=== PATIENT | male | born 1985 | race Caucasian/White ===

== ENCOUNTER 2018-07-23 02:21 | Inpatient (IN) ==
[2018-07-23] MEDS ORDERED: VANCOMYCIN 1 GM/NS 1 GM/250 ML IVPB IV ONE (04:13)
[2018-07-23] MEDS ORDERED: MORPHINE IV ONE (04:13)
--- NOTE | 2018-07-23 04:14 | PROVIDER DOCUMENTATION ---
HPI-General Adult - General Chief Complaint: Insect Bite/Sting Stated Complaint: FINGER INJURY Time Seen by Provider: 07/23/18 04:02 Source: patient Allergies/Adverse Reactions: Patient Allergies Allergy/AdvReac Type Severity Reaction Status Date / Time Penicillins Allergy Severe ANAPHYLAXIS Verified 01/04/18 09:30 sulfamethoxazole Allergy HIVES Verified 01/04/18 09:30 [From Bactrim] trimethoprim [From Bactrim] Allergy HIVES Verified 01/04/18 09:30 Home Medications: Home Medication List Medication Instructions Recorded Confirmed Last Taken Type No Home Medications 01/01/16 01/04/18 Unknown History - History of Present Illness -Gen Adult Nature of Presenting Problems: 33 y/o M presents to the ED complaining of redness and swelling of his left thumb and hand. States this began 2-3 days ago as a white bump on his medial left thumb and states this white area has increased in size and states over the past 24-36 hours his thumb and hand have become markedly swollen and red. No fever. no injury to thumb, did sustain a burn to his left lateral hand about 1 week ago but states this had fully healed. last tetanus > 5 years ago. Review of Systems - Adult - REVIEW OF SYSTEMS - ADULT Constitutional: reports: no symptoms reported Eyes: reports: no symptoms reported Ears, Nose, Mouth & Throat: reports: no symptoms reported Cardiovascular: reports: no symptoms reported Respiratory: reports: no symptoms reported Gastrointestinal: reports: no symptoms reported Genitourinary: reports: no symptoms reported Musculoskeletal: reports: no symptoms reported Integumentary: reports: other (wound, redness, swelling) Neurological: reports: no symptoms reported Psychiatric: reports: no symptoms reported Endocrine: reports: no symptoms reported Hematologic/Lymphatic: reports: no symptoms reported Allergic/Immunologic: reports: no symptoms reported All Other Systems: Reviewed and Negative Past History - Adult - PAST MEDICAL HISTORY-ADULT Review of Records: reports: Old Records Reviewed, Nursing Assessment Review, Medications Reviewed, Social history reviewed & non-contributory. Major Childhood Illnesses: reports: denies history Cardiovascular: reports: HTN Respiratory: reports: denies history Gastrointestinal: reports: denies history Obstetrical/Gynecological: reports: denies history Genitourinary: reports: denies history Musculoskeletal: reports: other Neurological: reports: denies history Psychiatric: reports: anxiety Endocrine/Immune: reports: denies history Other Conditions: reports: denies history - PRIOR SURGERIES/PROCEDURES Surgical/Procedure History: reports: tonsillectomy, orthopedic (extremity) (right wrist) - IMMUNIZATION STATUS Childhood Immunizations: UTD - FAMILY HISTORY Family History: reviewed, not pertinent Physical Exam-General - PHYSICAL EXAM-ADULT Initial Vital Signs Reviewed: Yes - CONSTITUTIONAL General Appearance: appears well, alert, no apparent distress - EYES Eyes: PERRL/EOMI - HEAD, EARS, NOSE, MOUTH & THROAT HENMT: normocephalic/atraumatic, moist mucous membranes, normal ENT inspection - NECK Neck: non-tender, full range of motion, supple - MUSCULOSKELETAL Back Exam: normal inspection Extremity: normal range of motion, non-tender - SKIN Integumentary: normal color, normal turgor, warm/dry, other (white discoloration along medial left thumb with slight pururlent drainge and marked surrouding edema and erthrema of thumb and proximal lateral hand. some tenderness along flexor compartment. 2+ pulses, CR < 2 sec, neurovascularly intact) - NEUROLOGIC Neurologic: grossly normal, no motor/sensory deficits - PSYCHIATRIC Psych/Mental Status: normal mood/affect, normal thought content, normal thought process, oriented x 3 Progress - PLAN OF CARE/RESULTS Progress/Plan/Lab Results: Orders Category Date Time Status IV Insertion ORDERED Care 07/23/18 04:[address] EXT UPPER LEFT W/CON [CT] Stat Exams 07/23/18 04:13 Ordered BASIC METABOLIC PANEL [CHEM] Stat Lab 07/23/18 04:13 Uncollected CBC WITH DIFF [HEME] Stat Lab 07/23/18 04:13 Uncollected WOUND CULTURE INC GRAM STAIN [RM] Stat Lab 07/23/18 04:13 Uncollected Morphine Med 07/23/18 04:13 Once 4 mg IV NOW ONE Vancomycin 1 gm IV Now Med 07/23/18 04:13 Ordered Vancomycin 1 gm/Ns 1 gm in 250 ml IV NOW thumb and hand infection concerning for tenosynovitis vs abscess. Will empirically treat with vanco and will update tetanus and will further evaluate for degree of infection. Assumed care from NT with plan for ortho consult pending CT. Result Diagrams: 07/23/18 04:41 07/23/18 04:41 - REASSESSMENT Reassessment #1 Status: unchanged (signed out to AM physician Dr. Angelo at [address] results and final disposition) - CT/MRI 1 CT Study: Upper Ext Impression: See EMR Report - CONSULTS/PCP/HOSPITALIST Notification #1 *Consult/PCP/Hospitalist*: PA for Dr. Croft Time Discussed: 08:40 Consult Disposition: Will see in ED #2 Consult: Hospitalist Time Discussed: :31 Consult Disposition: Admit Departure - Departure Date of Disposition Decision: 07/23/18 Time of Disposition Decision: : DIAGNOSIS: Cellulitis and abscess of hand Disposition: ADMITTED INPATIENT 09 Certified Medical Emergency: Emergent Condition: Serious Referrals and Follow-Ups: None,PCP [Primary Care Provider] - - Critical Care Note This patient required my direct & personal management of CC.: No Attestation - Physician/ CARLOS Attestation Patient care was provided by Advanced Practice Provider:: No The physician spent face to face time with patient:: Yes Advanced Practice Provider documentation review:: Supervising physician onsite and consulted in the evaluation and care of this patient. The physician did have a face to face encounter with the patient.
[2018-07-23] MEDS ORDERED: BOOSTRIX VACCINE IM ONE (05:14)
[2018-07-23 05:33] LABS: BASO# 0.04 X1000 (0.0-0.2); BASO% 0.3 % (0.0-0.8); EOS# 0.26 X1000 (0.0-0.7); EOS% 1.6 % (0.0-10.0); HEMATOCRIT 41.2 % (42.0-52.0); HEMOGLOBIN 14.1 g/dL (14.0-18.0); IMM GRAN# 0.04 X1000 (0.0-0.04); IMM GRAN% 0.3 % (0.0-0.5); LYMPH# 2.28 X1000 (1.2-3.4); LYMPH% 14.5 % (20.5-51.1); MCHC 34.2 g/dL (33-37); MCV 84.6 FL (81-99); MONO# 1.82 X1000 (0.11-0.59); MONO% 11.5 % (1.7-9.3); MPV 11.1 FL (7.4-10.4); NEUT# 11.32 X1000 (1.4-6.5); NEUT% 71.8 % (42.2-75.2); PLT 220 X1000 (130-400); RBC 4.87 XMIL (4.7-6.1); RDW 13.9 % (11.5-14.5); WBC 15.76 X1000 (4.8-10.8)
[2018-07-23 06:13] LABS: AGAP 13; BUN 15 mg/dL (8-22); CALCIUM 8.7 mg/dL (8.8-10.2); CHLORIDE 103 mmol/L (98-107); COSMO 278; CREATININE 0.8 mg/dL (0.7-1.2); ESTIMATED GFR > 60; GLUCOSE 83 mg/dL (70-104); POTASSIUM 3.8 mmol/L (3.5-5.1); SODIUM 139 mmol/L (136-145); TCO2 23 mmol/L (25-35)
[2018-07-23] MEDS ORDERED: DILAUDID IM ONE (06:15)
[2018-07-23] MEDS ORDERED: DILAUDID IV ONE (07:13)
--- NOTE | 2018-07-23 08:07 | Diag Imaging Result Doc PS360 ---
CT EXT UPPER LEFT W/CON - 07/23/2018 INDICATION: infection r/o abscess/tenosynovitis TECHNIQUE: CT of the entire left hand, arm and shoulder with intravenous contrast COMPARISON: None FINDINGS: Bones are intact and normally mineralized. The soft tissues are clear. No mass or fluid collection. There are some normal size, reactive axillary lymph nodes. The major arteries and veins of the shoulder and arm are all patent. No soft tissue gas. IMPRESSION: Negative exam. This exam was performed using automated exposure control, adjustment of mA or kV according to patient size, and/or use of iterative reconstruction technique Electronically signed by Isai Ziegler 07/23/2018 8:04 AM
[2018-07-23] MEDS ORDERED: TYLENOL PO ONE (08:22)
[2018-07-23] MEDS ORDERED: VANCOMYCIN IV PER PHARMACY MISC SCH (10:15)
[2018-07-23] MEDS ORDERED: NS 1,000 ML IV ONE (10:55)
[2018-07-23] MEDS ORDERED: NORCO-7.5 PO PRN (10:55)
[2018-07-23 11:04] LABS: URINE SOURCE CLEAN CATCH
[2018-07-23 11:11] LABS: BILIRUBIN URINE NEGATIVE (NEGATIVE); BLOOD URINE NEGATIVE (NEGATIVE); COLOR YELLOW; GLUCOSE URINE NEGATIVE (NEGATIVE); KETONE URINE NEGATIVE (NEGATIVE); LEUKOCYTES URINE NEGATIVE (NEGATIVE); NITRITE URINE NEGATIVE (NEGATIVE); PROTEIN URINE TRACE mg/dL (NEGATIVE); TURBIDITY URINE CLEAR (CLEAR); UROBILINOGEN URINE NORMAL (NORMAL)
[2018-07-23 11:14] LABS: UR EPITHELIAL CELLS <10 /HPF (<10); URINE BACTERIA NEGATIVE /HPF; URINE RBC <10 /HPF (<10); URINE WBC <10 /HPF (<10)
[2018-07-23 11:25] LABS: UR AMPHETAMINES QUAL NONE DETECTED (NONE DETECT); UR BARBITUATES QUAL NONE DETECTED (NONE DETECT); UR BENZODIAZEPIN QUAL NONE DETECTED (NONE DETECT); UR CANNABINOIDS QUAL NONE DETECTED (NONE DETECT); UR COCAINE QUAL NONE DETECTED (NONE DETECT); UR METHADONE QUAL NONE DETECTED (NONE DETECT); UR OPIATES QUAL PRESUMPTIVE POSITIVE (NONE DETECT); UR OXYCODONE QUAL NONE DETECTED (NONE DETECT); UR PCP QUAL NONE DETECTED (NONE DETECT)
--- NOTE | 2018-07-23 12:35 | HISTORY AND PHYSICAL ---
PRIMARY CARE PHYSICIAN: None. CHIEF COMPLAINT: Right thumb and hand pain and swelling. HISTORY OF PRESENT ILLNESS: Mr. Coleman is a 33-year-old male with no medical problems, who presents to the ER with pain to the right thumb and hand after presumably being bitten by a spider. He was working in his shed on his garage 3 days ago. He felt a sharp sting to the right thumb but did not think much of it. Later on that night, the thumb began to swell, and over the next 48 hours, the swelling increased, and while he was at work last night, he started feeling a little bit dizzy and came to the ER for evaluation. In the ER, he had labs done. He was noted to have a white count of 15,000, and he does have a fever of 100.3. A CT of the upper extremity was done which was negative for any abnormalities. No soft tissue gas was noted. He is hemodynamically stable at this time. We will admit him for IV antibiotics. PAST MEDICAL HISTORY: Nicotine dependence. PAST SURGICAL HISTORY: He has had right wrist surgery secondary to trauma. SOCIAL HISTORY: He chews tobacco daily. Denies alcohol or drug use. He is . He works at a local [employer] on third shift. FAMILY HISTORY: Noncontributory. REVIEW OF SYSTEMS: A 14-point review of systems was obtained and found to be negative with the exception of the HPI. ALLERGIES: Penicillin and Bactrim. HOME MEDICATIONS: None. PHYSICAL EXAMINATION: VITAL SIGNS: Blood pressure is 128/62, heart rate 89, respiratory rate 18, O2 saturation 98% on room air, temperature is 100.3. GENERAL: A well-developed, well-nourished male lying in hospital bed, in no acute distress. NEUROLOGICAL: Awake, alert and oriented. Follows commands without focal deficits. HEENT: Head is atraumatic and normocephalic. Pupils are equal, round and reactive to light. Oral mucosa is moist. NECK: Trachea is midline. No JVD. CHEST: Clear to auscultation. CARDIOVASCULAR: Regular rate and rhythm. S1 and S2 noted. No murmurs, gallops, clicks or rubs. GASTROINTESTINAL: Soft, nondistended and nontender. Bowel sounds positive. EXTREMITIES: Lower extremities without cyanosis, clubbing or edema. Pulses 2+ bilaterally. Left thumb has focal point of induration with serosanguineous fluid drainage, and the thumb down to the thenar muscles is edematous and erythematous. Range of motion is limited, but sensation and neurovascular are intact. There is no purulent drainage noted. DIAGNOSTIC DATA: WBC is 15.76, hemoglobin 14.1, hematocrit 41.2, platelet count 220. Sodium 139, potassium 3.8, chloride 103, CO2 is 23, anion gap 13, BUN is 15, creatinine 0.8, glucose 83, calcium 8.7. CT of the left hand is negative. ASSESSMENT AND PLAN: 1. Left hand/thumb cellulitis. Blood cultures have been ordered. We will continue vancomycin which was started in the ER. CT does not show anything acute. We will go ahead and have Orthopedics following, as it is over the thumb joint. 2. Early sepsis. The patient has a white count of 15.76, low grade fever. He is very minimally acidotic. We do not have vital signs for when he initially got to the ER. Blood cultures and lactic acid have been ordered. Continue vancomycin. He is hemodynamically stable. 3. Nicotine dependence. We will write a nicotine patch as needed for nicotine withdrawal and continue cessation education. 4. DVT prophylaxis. The patient is ambulatory. Further recommendations to follow. Patient seen and examined by me face to face, all the laboratory, images and vitals signs were reviewed, Patient presented with left hand cellulitis, specially his thumb with an small lesion at his thumb that is draining clear fluid, apparently he felt that was probably bitten by a spider while he was working on his garage, he has swelling, redness and severe pain in that area, he will be admitted with antibiotics, ain medication, orthopedic surgery will be consulted, I agree with the rest of the SENIOR BI ARCHITECT's assessment and plan, Dariusz Willingham MD. Dictated by ANDRÉS Stroud for Dariuzs Boo MD cc: ANDRÉS Stroud MD MTDD
--- NOTE | 2018-07-23 13:24 | ORTHOPAEDICS CONSULTATION ---
DATE: 07/23/2018 CHIEF COMPLAINT: Left hand pain and swelling. HISTORY OF PRESENT ILLNESS: Mr. Coleman is a 33-year-old male who is complaining of left hand pain and swelling for the past 2 days. He denies any injury. He states 2 days prior, his thumb and thenar eminence started to become painful and swollen. He states that he has had light drainage from a wound at the thumb and feels that it is an insect bite. His pain worsened, and he presented to the emergency department where we were consulted for further evaluation and treatment. For past medical history, past surgical history, allergies and medications, see the emergency department documentation. REVIEW OF SYSTEMS: Positive for left hand pain and swelling, all others negative. PHYSICAL EXAMINATION: General: This is a well-developed, well-nourished male. He is alert, oriented and cooperative with the examination. He is in no acute distress. Vital signs: He is afebrile. HEENT: Head is atraumatic and normocephalic. Neck is supple. Respiratory: His breathing is nonlabored. Abdomen is nondistended. Cardiovascular: He has good capillary refill of his left thumb. Musculoskeletal: He has loss of full active and passive flexion of his left thumb, but he is able to perform range of motion with some pain. He has full range of motion in extension of his left thumb without pain. He has mild tenderness over his left thumb flexor tendon. There is erythema and edema throughout the left thenar eminence and left thumb. There is a small wound at the lovett thumb with no active drainage. There is also ecchymosis surrounding his wound. There is also a wound on his dorsal radial hand that appears to be healing. The patient states it has been there for 2 months. DIAGNOSTIC DATA: His white blood cell count is 15.72. IMAGING: A CT of his hand revealed no abnormality. ASSESSMENT: Left thenar eminence and thumb cellulitis. PLAN: We do not feel that it is flexor tenosynovitis at this time. We recommend that he be admitted for IV antibiotics and will continue to monitor him. If he does not improve with IV antibiotics, we may consider taking to the operating room for irrigation and debridement. We will monitor him for now. Dictated by MELI Iniguez for Osvaldo Croft MD cc: MELI Iniguez MD MTDD
[2018-07-23] MEDS ORDERED: MAXIPIME 1 GM in NS 50 ML IV SCH (13:45)
[2018-07-23] MEDS ORDERED: PNEUMOVAX 23 IM ONE (14:00)
[2018-07-23] MEDS ORDERED: ULTRAM PO PRN (14:15)
[2018-07-23] MEDS ORDERED: TORADOL IV PRN (14:16)
[2018-07-23] MEDS: MERREM 1 GM in NS 50 ML IV SCH ×2 (15:10→22:27)
[2018-07-23] MEDS: VANCOMYCIN 1,500 MG in NS 250 ML IV SCH (15:55)
[2018-07-23] MEDS: NORCO-10 PO PRN (21:08)
[2018-07-23] MEDS: NICODERM PATCH TD PRN (21:09)
[2018-07-24] MEDS: NORCO-10 PO PRN ×4 (03:14→21:11)
[2018-07-24] MEDS: VANCOMYCIN 1,500 MG in NS 250 ML IV SCH ×2 (03:15→15:01)
[2018-07-24] MEDS: MERREM 1 GM in NS 50 ML IV SCH ×4 (06:31→23:02)
[2018-07-24 06:32] LABS: BASO# 0.02 X1000 (0.0-0.2); BASO% 0.2 % (0.0-0.8); EOS# 0.39 X1000 (0.0-0.7); EOS% 3.8 % (0.0-10.0); HEMATOCRIT 39.5 % (42.0-52.0); IMM GRAN# 0.02 X1000 (0.0-0.04); IMM GRAN% 0.2 % (0.0-0.5); LYMPH# 1.58 X1000 (1.2-3.4); LYMPH% 15.3 % (20.5-51.1); MCH 28.3 PG (27-31); MCHC 32.9 g/dL (33-37); MCV 86.1 FL (81-99); MONO# 0.95 X1000 (0.11-0.59); MONO% 9.2 % (1.7-9.3); MPV 10.5 FL (7.4-10.4); NEUT# 7.34 X1000 (1.4-6.5); NEUT% 71.3 % (42.2-75.2); PLT 201 X1000 (130-400); RBC 4.59 XMIL (4.7-6.1)
[2018-07-24 06:59] LABS: AGAP 10; ALB/GLOB RATIO 1.2; ALBUMIN 3.2 g/dL (3.5-5.0); ALKALINE PHOSPHATASE 78 U/L (32-122); BUN 13 mg/dL (8-22); CALCIUM 8.5 mg/dL (8.8-10.2); CHLORIDE 105 mmol/L (98-107); COSMO 278; CREATININE 0.7 mg/dL (0.7-1.2); ESTIMATED GFR > 60; GLUCOSE 101 mg/dL (70-104); GOT 11 U/L (10-34); GPT 14 U/L (10-44); POTASSIUM 4.4 mmol/L (3.5-5.1); SODIUM 139 mmol/L (136-145); TCO2 24 mmol/L (25-35); TOTAL BILIRUBIN 0.27 mg/dL (0.20-1.00); TOTAL PROTEIN 5.8 g/dL (6.3-8.3)
[2018-07-24] MEDS: NICODERM PATCH TD PRN (10:18)
--- NOTE | 2018-07-24 14:16 | PROGRESS NOTE ---
DATE: 07/24/2018 SUBJECTIVE: This patient is still complaining of left hand/thumb pain. He has been evaluated by Orthopedic Surgery Department. We will monitor this patient closely. We will continue with antibiotics. If tomorrow the swelling is about the same, we will probably go to the OR to check on this. For now, we will continue with the same management. I asked the patient to keep the arm elevated. OBJECTIVE: Vital Signs: Temperature 97.9 degrees, pulse 66, respiratory rate 14, blood pressure 110/66, oxygen saturation 100% on room air. HEENT: Head normocephalic, no trauma. PERRLA. Neck: Supple. No JVD. No masses. Central trachea. Chest: Clear to auscultation. No wheezing. No rales. Abdomen: Soft, nontender, nondistended. No hepatosplenomegaly. Extremities: His left thumb has a focal area of induration with a little bit of serosanguineous fluid coming out, he has also a small wound in that area but I do not see any pus. The thumb is edematous and is painful to palpation and mobilization. His hand is also swollen, mostly close to the infected area. He is able to move all the fingers except the thumb. Neurological: Alert and oriented x3. No focal deficit. LABORATORY DATA: WBC 10.3, hemoglobin 13, hematocrit 39.5, platelets 201,000. Sodium 139, potassium 4.4, chloride 105, bicarbonate 24, BUN 13, creatinine 0.7, glucose 101, calcium 8.5, albumin 3.2. ASSESSMENT AND PLAN: 1. Left hand/left thumb cellulitis. So far, blood culture and hand culture is negative. WBC trending down but he is still having thumb swelling, redness and pain. Orthopedic Surgery evaluated this patient today again and they will probably go to the OR tomorrow to take a closer evaluation. We will continue with the same management. I asked the patient to keep the extremity elevated. 2. Nicotine dependence. This patient has been highly advised against tobacco use. I will continue with daily cessation education. 3. Deep venous thrombosis prophylaxis, this patient is ambulatory. cc: Dariusz Boo MD
--- NOTE | 2018-07-24 16:26 | ORTHOPAEDICS PROGRESS NOTE ---
DATE: 07/24/2018 SUBJECTIVE: Emily Coleman is a 33-year-old male with infection of his left hand. He states it has improved some since yesterday. OBJECTIVE: He is a well-developed, well-nourished male. He is alert, oriented, cooperative exam. His white count is down to 10 however and his hand is less swollen particularly his thenar eminence. He can flex and extend his fingers except for his thumb. He still has significant swelling of his thumb. There is significant redness and he cannot flex or extend his interphalangeal joint. ASSESSMENT: Cellulitis with possible flexor tenosynovitis. PLAN: We have discussed with him at length treatment, we are going to continue IV antibiotics today, if it does not improve more by tomorrow morning I am going to go ahead and put him on the schedule today for tomorrow morning. We can cancel of it gets better through the day. cc: Osvaldo Croft MD
[2018-07-24] MEDS ORDERED: NS 500 ML ONE (21:23)
[2018-07-25] MEDS: NORCO-10 PO PRN (03:36)
[2018-07-25] MEDS: VANCOMYCIN 1,500 MG in NS 250 ML IV SCH (03:37)
[2018-07-25] MEDS ORDERED: XYLOCAINE-MPF 2% ONE (07:05)
[2018-07-25] MEDS ORDERED: ROBINUL ONE (07:05)
[2018-07-25] MEDS ORDERED: FENTANYL ONE (07:09)
[2018-07-25] MEDS ORDERED: DIPRIVAN 1% ONE (07:09)
[2018-07-25 07:19] LABS: BASO# 0.03 X1000 (0.0-0.2); BASO% 0.3 % (0.0-0.8); EOS# 0.42 X1000 (0.0-0.7); EOS% 3.8 % (0.0-10.0); HEMATOCRIT 41.9 % (42.0-52.0); HEMOGLOBIN 13.9 g/dL (14.0-18.0); IMM GRAN# 0.02 X1000 (0.0-0.04); IMM GRAN% 0.2 % (0.0-0.5); LYMPH# 1.42 X1000 (1.2-3.4); LYMPH% 12.8 % (20.5-51.1); MCH 28.5 PG (27-31); MCHC 33.2 g/dL (33-37); MCV 85.9 FL (81-99); MONO# 0.88 X1000 (0.11-0.59); MPV 10.7 FL (7.4-10.4); NEUT# 8.29 X1000 (1.4-6.5); NEUT% 74.9 % (42.2-75.2); PLT 241 X1000 (130-400); RBC 4.88 XMIL (4.7-6.1); RDW 13.7 % (11.5-14.5); WBC 11.06 X1000 (4.8-10.8)
[2018-07-25 07:41] LABS: AGAP 10; BUN 13 mg/dL (8-22); CALCIUM 8.8 mg/dL (8.8-10.2); CHLORIDE 103 mmol/L (98-107); COSMO 279; CREATININE 0.7 mg/dL (0.7-1.2); ESTIMATED GFR > 60; GLUCOSE 98 mg/dL (70-104); POTASSIUM 4.4 mmol/L (3.5-5.1); SODIUM 140 mmol/L (136-145); TCO2 27 mmol/L (25-35)
[2018-07-25] MEDS ORDERED: VERSED ONE (07:54)
[2018-07-25] MEDS ORDERED: PRECEDEX ONE (07:55)
[2018-07-25] MEDS ORDERED: REGLAN ONE (07:55)
[2018-07-25] MEDS ORDERED: PEPCID ONE (07:57)
[2018-07-25] MEDS ORDERED: NEOSPORIN G.U. IRRIGANT ONE (08:02)
--- NOTE | 2018-07-25 08:09 | ORTHOPAEDICS PROGRESS NOTE ---
DATE: 07/25/2018 SUBJECTIVE: Emily Coleman is a 33-year-old male with a left thumb infection, possible tenosynovitis. We are planning to do an irrigation and debridement of his thumb today. OBJECTIVE: His thumb is improved today. However, there is still some erythema and blistering as well as lack of inability to flex or extend his thumb. ASSESSMENT: Improving left thumb cellulitis with possible tenosynovitis. PLAN: We will plan on proceeding with irrigation and debridement of his thumb today. I again discussed with him the risks, benefits, and alternatives of surgery including but not limited to bleeding, nerve damage, infection, risk from anesthesia, continued infection up to and including loss of life, and other imponderables. All questions were answered. No guarantees were given. He requested to proceed as planned. We will proceed with the surgery this morning. cc: Osvaldo Croft MD
[2018-07-25] MEDS ORDERED: ZOFRAN ONE (08:12)
[2018-07-25] MEDS ORDERED: MARCAINE 0.5% PF ONE (08:36)
[2018-07-25] MEDS: DILAUDID ONE ×2 (09:12→09:15)
--- NOTE | 2018-07-25 09:41 | OPERATIVE NOTE ---
PROCEDURE DATE: 07/23/2018 PREOPERATIVE DIAGNOSIS: Left thumb infection. POSTOP DIAGNOSIS: Left thumb infection with necrotic tissue. PROCEDURE: Incision, drainage, irrigation and debridement of left thumb wound. ANESTHESIA: General. SURGEON: Osvaldo Croft MD. COMPLICATIONS: None. BLOOD LOSS: Minimal. TOURNIQUET TIME: Approximately 30 minutes. DESCRIPTION OF OPERATION: Patient brought to the operative suite and placed in supine position. After successful administration of general anesthesia, a well-padded tourniquet was placed on the left proximal arm. Left upper extremity was prepped and draped in usual sterile fashion. The tourniquet was inflated to 250 torr. The skin overlying the wound was removed, the top layer of the skin which was blistering. Once this was removed, it exposed an approximately 5 to 6 mm area of necrotic tissue. This was debrided back to normal-appearing tissue and dissected down to the flexor and extensor tendons. There appeared to be no fluid in either tendon sheath, but once all the necrotic tissue was removed, we opened up the incision proximally to inspect the tendons and once it was completely cleaned, it was washed with normal saline containing irrigant and Vashe irrigation. Two Yamilet drains were placed, 1 dorsally, 1 palmarly and then the opened part of the skin incision was closed with interrupted nylon suture. A sterile dressing was then applied. The patient tolerated the procedure without complication. At the end of the procedure, all counts were correct. The patient was transferred to the recovery room stable condition. cc: Osvalod Croft MD
[2018-07-25] MEDS ORDERED: ULTRAM PO SCH (09:50)
[2018-07-25 10:56] LABS: HEPATITIS PROFILE ACUTE SEE COMMENTS
[2018-07-25] MEDS: LEVAQUIN 750 MG/D5W 750 MG/150 ML IVPB IV SCH (13:04)
[2018-07-25] MEDS: OXY IR PO PRN ×3 (13:05→20:25)
--- NOTE | 2018-07-25 13:10 | PROGRESS NOTE ---
DATE: 07/25/2018 SUBJECTIVE: This patient had an incision, drainage, irrigation and debridement of the left thumb wound due to left thumb infection with some necrotic tissue. He went to surgery today in the morning. At this moment, he is completely alert. He is oriented x3. Family members at the bedside, his . I do not see any vascular or neurological lesion at this moment on his right hand. Vital signs are stable. OBJECTIVE: Vital Signs: Temperature 97.7 degrees, pulse 60, respiratory rate 16, blood pressure 114/63, oxygen saturation 95% on room air. HEENT: Head normocephalic. No trauma. PERRLA. Neck: Supple. No JVD. No masses. Central trachea. Chest: Clear to auscultation. No wheezing. No rales. Abdomen: Soft, nontender, nondistended. No hepatosplenomegaly. Extremities: His left thumb is covered with a new dressing as well as part of the hand. The tip of the thumb has good capillary refill and sensitivity. He has some pain. I do not see any secretion or bleeding at this moment. Part of the hand close to the thumb is edematous with some redness. He is able to move all the fingers except for the thumb that is covered at this moment. Neurological Examination: The patient is alert. He is oriented x3. No focal neurological deficits. Laboratory: WBC 11, hemoglobin 13.9, hematocrit 41.9, platelets 241,000. Sodium 140, potassium 4.4, chloride 103, bicarbonate 27, BUN 13, creatinine 0.7, glucose 98, calcium 8.8. ASSESSMENT AND PLAN: 1. Left hand/left thumb cellulitis with some left thumb necrotic tissue, status post incision, drainage, irrigation, and debridement of the left thumb wound. It looks like he tolerated well the procedure. At this moment, he is back to his regular room. He is completely alert and oriented x3. The wound is covered with a clean dressing. I do not see any kind of secretion, bleeding. I do not notice at this moment any kind of neurovascular problem. 2. Nicotine dependence. This patient has been highly advised against tobacco use. I will continue with daily cessation education. 3. As per the patient, he has a history of alcohol abuse and apparently he has been in rehabilitation before. No signs of withdrawal. As per the patient, that is just something that happened in the past but not anymore. 4. Likely narcotic abuse in the past. At the beginning of his hospitalization, I clearly asked the patient if he had any kind of reaction, problem with medications, and he denied that. Also, I clearly and specifically ask for narcotic abuse in the past and he denied that as well. I checked the PDMP website for this patient. I found out that at least 24 prescriptions were given to him between 2013 and 2014 with multiple providers, most of them here in [place] but also in [place], [place], and [place]. I discussed this with the patient. It looks like he does not consider himself, at this moment, a narcotic user. As per the patient, that was something that happened in the past but he changed. I ask him why he did not tell me when I asked him specifically about this at the beginning of this hospitalization and he stated that he felt embarrassed and he did not think that something that happened a few years ago would be a problem at this moment. Like I said, at this moment, he denies any kind of problem with narcotics. The PDMP report did not show any prescription this year and only one last year. Since this patient just came out from surgery and we know that this is extremely painful, we will continue for now with the same management but eventually, we will start decreasing the dose and the frequency, and hopefully, we will discharge this patient home at some point without narcotics if we can. cc: Dariusz Boo MD
[2018-07-25] MEDS ORDERED: VANCOMYCIN 1,750 MG in NS 250 ML IV SCH (15:00)
[2018-07-25] MEDS ORDERED: MORPHINE IV ONE (15:19)
[2018-07-25] MEDS: NICODERM PATCH TD PRN (15:47)
[2018-07-25] MEDS ORDERED: NORCO-10 PO ONE (23:43)
[2018-07-26 05:54] LABS: BASO# 0.02 X1000 (0.0-0.2); BASO% 0.3 % (0.0-0.8); EOS# 0.62 X1000 (0.0-0.7); EOS% 7.9 % (0.0-10.0); HEMATOCRIT 41.7 % (42.0-52.0); HEMOGLOBIN 13.9 g/dL (14.0-18.0); LYMPH# 1.59 X1000 (1.2-3.4); LYMPH% 20.3 % (20.5-51.1); MCH 28.7 PG (27-31); MCHC 33.3 g/dL (33-37); MCV 86.2 FL (81-99); MONO# 0.92 X1000 (0.11-0.59); MONO% 11.7 % (1.7-9.3); NEUT# 4.69 X1000 (1.4-6.5); NEUT% 59.8 % (42.2-75.2); PLT 248 X1000 (130-400); RBC 4.84 XMIL (4.7-6.1); RDW 13.7 % (11.5-14.5); WBC 7.84 X1000 (4.8-10.8)
[2018-07-26 06:25] LABS: SODIUM 141 mmol/L (136-145)
[2018-07-26 06:26] LABS: AGAP 6; BUN 12 mg/dL (8-22); CALCIUM 8.9 mg/dL (8.8-10.2); CHLORIDE 102 mmol/L (98-107); COSMO 281; CREATININE 0.9 mg/dL (0.7-1.2); ESTIMATED GFR > 60; GLUCOSE 98 mg/dL (70-104); POTASSIUM 4.2 mmol/L (3.5-5.1); TCO2 33 mmol/L (25-35)
[2018-07-26] MEDS: MORPHINE IV PRN ×4 (08:28→22:52)
[2018-07-26] MEDS: NICODERM PATCH TD PRN (08:29)
--- NOTE | 2018-07-26 09:38 | PROGRESS NOTE ---
DATE: 07/26/2018 SUBJECTIVE: This patient had an incision, drainage, irrigation, and debridement of the left thumb wound due to left thumb infection with some necrotic tissue, postoperative day #1. At this moment, he is completely alert and oriented x3. He is complaining of pain 10/10 in that area, pulsating, throbbing. As per the patient, the oxycodone does not work for him so I will switch it for now to [place] and morphine as needed. OBJECTIVE: Vital Signs: Temperature 98.6 degrees, pulse 73, respiratory rate 16, blood pressure 137/69, oxygen saturation 100% on room air. HEENT: Head normocephalic. No trauma. PERRLA. Neck: Supple. No JVD. No masses. Central trachea. Chest: Clear to auscultation. No wheezing. No rales. Abdomen: Soft, nontender, nondistended. No hepatosplenomegaly. Extremities: His left thumb and part of the hand is covered with a dressing. The tip of the thumb is exposed and has good capillary refill and sensitivity. He is complaining of pain. I do not see any secretion or bleeding coming out from that area at this moment. He is able to move all the fingers except the thumb that is covered with a dressing. Neurological Examination: Alert and oriented x3. No focal deficits. Laboratory: WBCs 7.8, hemoglobin 13.9, hematocrit 41.7, platelets 248,000. Sodium 141, potassium 4.2, chloride 102, bicarbonate 33, BUN 12, creatinine 0.9, glucose 98, calcium 8.9. ASSESSMENT AND PLAN: 1. Left hand/left thumb cellulitis with some left thumb necrotic tissue, status post incision, drainage, irrigation, and debridement of the left thumb wound, postoperative day #1. It looks like he tolerated well the procedure. At this moment, he is complaining of pain of 10/10 in that area. As per the patient, the oxycodone does not work for him. I have switched the treatment to [place] and as-needed morphine. We have a positive culture that showed Streptococcal pyogenes, sensitive to levofloxacin. I discussed the case with Dr. Villanueva from infectious disease department and he agreed with the treatment. He has been placed on levofloxacin. 2. Nicotine dependence. This patient has been highly advised against tobacco use. I will continue with daily cessation education. 3. As per the patient, he has a history of alcohol abuse and apparently he has been in rehabilitation before. No signs of withdrawal. As per the patient, he stopped drinking and it is just something that happened in the past but not anymore. 4. Likely narcotic abuse in the past. Like I mentioned before, at the beginning of this hospitalization, I clearly asked the patient if he had any kind of reaction problem or addiction to any kind of medication before and he denied that. I asked this question multiple times. I checked the PDMP website for this patient. I found out that at least 24 prescriptions were given to him between 2013 and 2014 with multiple providers. Most of them were given in [place] but also [place], [place], and [place]. This has been already discussed with the patient and, as per the patient, he does not consider himself at this moment a narcotic user. Again, he stated that this is something that happened in the past but not anymore because he had changed. I told the patient that I understand that he has severe pain and right now, he is getting narcotics but eventually, we should decrease the frequency, dose, and if we can, stop it. I do not think he likes the idea but we will try to do it. He seems to understand. cc: Dariusz Boo MD
[2018-07-26] MEDS: NORCO-10 PO PRN ×3 (10:07→20:19)
[2018-07-26] MEDS: LEVAQUIN 750 MG/D5W 750 MG/150 ML IVPB IV SCH (12:26)
[2018-07-27] MEDS: NORCO-10 PO PRN (07:25)
[2018-07-27 07:35] VITALS: BP 127/72
--- NOTE | 2018-07-27 09:09 | ORTHOPAEDICS PROGRESS NOTE ---
DATE: 07/27/2018 SUBJECTIVE: Emily Coleman is a 33-year-old male, postoperative day 2 from I and D of his left thumb. He has no new complaints. OBJECTIVE: He is a well-developed, well-nourished male. He is alert and cooperative with the exam. His cultures have come back with streptococcus pyrogenes. His wound is healing. We have changed his dressing and removed his drains. His wound looks clean. There is no sign of any infection. He has some mild erythema about his thumb. ASSESSMENT: Left thumb spider bite, status post irrigation and debridement. PLAN: He can be discharged home on appropriate antibiotics for streptococcus pyrogenes. He should return to see me next . He has been instructed on wound care at home. cc: Osvaldo Croft MD
[2018-07-27] MEDS: MORPHINE IV PRN (09:27)
--- NOTE | 2018-07-27 10:29 | DISCHARGE SUMMARY ---
ADMISSION DATE: 07/23/2018 DISCHARGE DATE: 07/27/2018 HISTORY: Mr. Coleman was admitted on 07/23/2018. He has no primary care physician. He came in with right thumb and hand pain and swelling. This is a 33-year-old with no medical history who presented to the emergency room with right thumb and hand after being bitten by a spider. He was working on his garage 3 days before. He felt a sharp stinging in the right thumb, but did not think much of it. Later that night, the thumb began to swell over the next 48 hours. The swelling increased while he was at work, and started feeling a little bit dizzy and came to the emergency room. In the [place] room[place] [id number]. He did have a fever of 100.3. A CT of the upper extremity was done which is negative for any abnormalities. No soft tissue gas was noted. He was hemodynamically stable, and admitted. He was admitted with left hand thumb cellulitis. Blood cultures have been ordered, and put on vancomycin. It was felt he might have early signs of sepsis. Then, we gave him a nicotine patch for nicotine dependence. Dr. Croft saw him. He treated him for cellulitis, and possible flexor tenosynovitis. On 07/25/2018, we did an incision and drainage, irrigation, debridement of left thumb wound, left thumb infection with necrotic tissue. It was felt he could go home on 07/27/2018. The cultures grew out Streptococcus pyogenes. He can be discharged home and return back to see Dr. Croft. The cultures with group A strep pyogenes and was really sensitive to everything. We will continue Levaquin 750 mg p.o. daily, and I will give him enough for 2 more weeks. I will give him some nicotine patch. I will give him some hydrocodone 10 mg, I gave him 20 of those. He needs to find a primary care, and he is to follow up with Dr. Croft in a week to 2 weeks. cc: Jovany Hayes MD
== END 2018-07-27 11:08 | disposition home or self-care (01) | DRG 906 ==
LOC: ED 02:21 → EDIPHOLD 10:45 → SUATTDRO 10:45 → 4N 11:25
PROVIDERS: ATTEND Emergency Medicine
CPT/HCPCS: 73201; 80048; 80053; 80074; 80101; 80202; 80301; 80307; 80324; 80345; 80346; 80353; 80358; 80361; 80365; 81001; 83605; 83992; 85025; 87040; 87070; 87077; 87186; 90471; 90715; 90732; 96365; 96375; 99285; A9270; G0431; G0434; G0479; G0480; J1170; J1885; J1956; J2185; J2250; J2270; J2405; J2765; J3010; J3370; J7030; J7040; J7050; Q9967; S0020; S0028